=== PATIENT | female | born 1995 | race Hispanic/Latino ===

== ENCOUNTER 2017-12-26 11:41 | Emergency (ER) | payer SELFPAY ==
[2017-12-26 13:14] LABS: BILIRUBIN,URINE Small (NEGATIVE); COLOR,URINE Orange (YELLOW); GLUCOSE, URINE (UA) Negative (NEGATIVE); HCG,QUAL RESULT NEGATIVE (NEGATIVE); KETONES,URINE Negative (NEGATIVE); LEUKOCYTE ESTERASE ,URINE Large (NEGATIVE); NITRATE,URINE Positive (NEGATIVE); OCCULT BLOOD,URINE Moderate (NEGATIVE); PROTEIN,URINE Trace (NEGATIVE)
[2017-12-26 13:16] LABS: APPEARANCE,URINE SLIGHTLY CLOUDY (CLEAR)
[2017-12-26 13:34] LABS: SQUAMOUS EPITHELIAL CELL,UR Moderate /LPF (0-2)
[2017-12-26 13:35] LABS: BACTERIA,URINE Moderate /HPF (None Seen)
[2017-12-26 13:36] LABS: YEAST,URINE BUDDING Few /HPF (None Seen)
[2017-12-26] MEDS ORDERED: LIDOCAINE HCL-MPF 1% 2ML VIAL ONE (13:37)
[2017-12-26] MEDS ORDERED: CEFTRIAXONE SODIUM 1 GM ONE (13:37)
== END 2017-12-26 14:25 | disposition home or self-care (01) ==
LOC: EDH 11:41
DX: N39.0 Urinary tract infection, site not specified (principal); Z72.0 Tobacco use
CPT/HCPCS: 81001; 81025; 96372; 99284; J0696; J3490

== ENCOUNTER 2025-07-23 08:35 | Emergency (ER) | payer SELFPAY ==
[~2025-07-23] VITALS: Ht 162.6 cm; Wt 74.4 kg
[2025-07-23 10:04] LABS: RAPID GROUP A STREP negative (NEGATIVE)
[2025-07-23 10:12] LABS: COVID19 (SARS ANTIGEN RAPID) PRESUMPTIVE NEGATIVE (NEGATIVE)
[2025-07-23 10:13] LABS: INFLUENZA TYPE A Negative For Type A (NEGATIVE); INFLUENZA TYPE B Negative For Type B (NEGATIVE)
[2025-07-23] MEDS ORDERED: AZIT250T9 PO (10:26)
--- NOTE | 2025-07-23 10:26 | ERN ---
ED Note History of Present Illness Stated Complaint: SORE THROAT Chief Complaint: Sore Throat Time Seen by MD: 08:40 Dictation: 29-year-old female with a sore throat past few days cough cold congestion and pain with eating. Allergies: Coded Allergies: No Known Allergies (Unverified Allergy, Unknown, 07/23/25) Past Medical History Past Medical History: No Pertinent History Surgical History: None LMP: Jun 23, 2025 : 3 Para: 2 Aborts: 1 Review of System Dictation Constitutional: Negative for fever,chills, and weight loss Eyes: Negative for injury, pain,redness, and discharge ENT: Per HPI Cardiovascular: Negative for chest pain, palpitations, and edema Respiratory: Negative for shortness of breath, cough, and wheezing, Abdomen/GI: Negative for abdominal pain, nausea, vomiting, diarrhea, and constipation Back: Negative for injury and pain : Negative for injury, bleeding and discharge MS/Extremity: Negative for injury and deformity Initial Vital Sign VS Vital Signs Date Time Temp Pulse Resp B/P (MAP) Pulse Ox O2 Delivery O2 Flow Rate FiO2 07/23/25 08:38 100.4 98 18 136/89 100 Room Air 0 Physical Exam Dictation General: awake, alert, NAD Head/Face: Normocephalic, atraumatic Eyes: PERRL, EOMI, vision at baseline ENT: oral cavity clear, TMs clear, posterior exudates Neck: Trachea midline, supple, no nuchal rigidity Cardiovascular: RRR, normal S1/S2, No MRGs, no JVD Respiratory: CTAB, no respiratory distress, No rales or wheezes Abdomen: Soft, non-tender, non-distended, normal bowel sounds, no guarding or rebound. Skin: Warm, dry, normal turgor, no rash MS/Extremity: Pulses equal, no cyanosis, neurovascular intact, FROM Neuro: COAx4, GCS 15, strength 5/5, CN 2-12 intact, normal cerebellar exam, normal gait, Results (Laboratory/Radiology) Laboratory/Radiology Laboratory Tests Test 07/23/25 08:55 Influenza Type A Antigen Negative For Type A Influenza Type B Antigen Negative For Type B SARS-CoV-2 Antigen (Rapid) PRESUMPTIVE NEGATIVE Group A Streptococcus Rapid negative (NEGATIVE) Labs Reviewed?: Yes ED Course ED Course Orders Procedure Category Date Status Time Covid19 (Sars Antigen LAB 07/23/25 Complete Rapid) 08:44 Influenza Type A & B, LAB 07/23/25 Complete Rapid 08:44 Rapid (Group A Strep) LAB 07/23/25 Complete 08:44 Ceftriaxone 1g Vial PHA 07/23/25 Complete (Rocephine 1g Inj) 09:00 Acetaminophen 325 Tab PHA 07/23/25 Complete (Tylenol 325mg Tab 09:30 Dexamethasone 10mg/Ml PHA 07/23/25 Complete 1ml Vial (Dexameth 09:00 Current Medications Medications (Trade) Dose Ordered Sig/Clayton Route PRN Reason Start Time Stop Time Status Last Admin Dose Admin Acetaminophen (TYLenol 325MG TAB) 650 mg ONCE ONCE PO 07/23/25 09:30 07/23/25 09:31 DC 07/23/25 09:59 Ceftriaxone Sodium (ROCEphine 1G INJ) 1 gm ONCE ONCE IM 07/23/25 09:00 07/23/25 09:27 DC 07/23/25 09:58 Dexamethasone Sodium Phosphate (dexaMETHasone 10MG/ML 1ML VIAL) 10 mg ONCE ONCE IV 07/23/25 09:00 07/23/25 09:27 DC 07/23/25 09:58 Vital Signs Date Time Temp Pulse Resp B/P (MAP) Pulse Ox O2 Delivery O2 Flow Rate FiO2 07/23/25 08:38 100.4 98 18 136/89 100 Room Air 0 Medical Decision Making MDM MDM: Differential diagnosis: Rationale: Tests considered and ordered secondary to shared decision making include: Previous outside records reviewed: Old ER visits. Risk of complication and/or morbidity or mortality of patient management: None Medications-Per medication reconciliation Need for hospitalization: Patient does not meet criteria for hospitalization. Need for emergency major/minor surgery: No There are no social concerns with this patient. Prescription drug management Prescriptions will include symptomatic care Patient's prior external medical records from other ER visits were reviewed by me as indicated. Prior testing and results from previous visits were reviewed. Prior tests were taken into account with medical decision making and resource utilization, independent historian/historians were used to obtain complete medical history. I independently interpreted the test that were performed, results were reviewed by me and considered findings on radiology if ordered. Medical management and examination interpretation discussions were had by me with other qualified healthcare professionals as indicated for the patient's care. 29-year-old female with pharyngitis stable exam prescriptions given DX & DISP Disposition: Discharge Departure Impression: Primary Impression: Acute pharyngitis Condition: Stable Scripts Azithromycin (Azithromycin) 250 Mg Tablet 250 MG PO AD for cough for 5 Days, #6 TAB Prov: LIZBETH BISHOP MD 07/23/25 Referrals: SELF,REFERRAL (PCP) LIZBETH BISHOP MD Jul 23, 2025 10:26
[2025-07-23 10:42] VITALS: BP 124/78; PULSE 78; RESP 18; TEMP 98.4; O2SAT 98
--- NOTE | 2025-07-24 09:24 | NUR ---
ACCOUNT ACCESSED FOR QUESTION/CLARIFICATION FROM [facility]. PER CHIDI BHAKTA FOR PT TO TAKE Z PACK GENERALLY PRESCRIBED 2 TABS FOR 500MG DAY ONE AND 250MG 1 TAB DAILY UNTIL COMPLETE (4 TABS).
== END 2025-07-23 10:49 | disposition home or self-care (01) ==
LOC: EDH 08:35
DX: J02.9 Acute pharyngitis, unspecified (principal); Z20.822 Contact with and (suspected) exposure to COVID-19
CPT/HCPCS: 99284; 96374; 87426; 87880; 87804 ×2; 96372; J1100; J0696

== ENCOUNTER 2025-07-25 17:41 | Emergency (ER) | payer SELFPAY ==
[~2025-07-25] VITALS: Ht 162.6 cm; Wt 74.4 kg
[~2025-07-25 17:41] MED LIST: AZIT250T9 PO
--- NOTE | 2025-07-25 17:47 | ERN ---
ED Note History of Present Illness Stated Complaint: SORE THROAT Chief Complaint: Sore Throat Time Seen by MD: 17:42 Time Seen by Midlevel: 17:43 Dictation: Ms. Dobbins is a 29 old female with no reported chronic health issues who presented to the emergency department this evening for evaluation of throat pain. She reports throat pain, pain with swallowing/decreased p.o. intake, bilateral ear pain, and lightheadedness. She reports similar symptoms earlier this week. She was seen in this ER on 07/23. At that time COVID and strep were negative. She received doses IM Rocephin and Decadron. She was diagnosed with acute pharyngitis and discharged to home with prescription for azithromycin. Today she states throat pain is persistent and she has a headache. She states she feels like she might be getting dehydrated. She denies angioedema, difficulty breathing, drooling or muffled voice. She Denies fever, chills, shortness of breath, cough, chest pain, palpitations, edema, abdominal pain, [place], vomiting, hematemesis, constipation, diarrhea, melena, hematochezia, dysuria, dizziness, or focal weakness/paresthesia Allergies: Coded Allergies: No Known Allergies (Unverified Allergy, Unknown, 07/23/25) Home Meds Active Scripts Ketorolac Tromethamine (Toradol) 10 Mg Tab, 1 TAB PO Q6HPRN PRN for pain, #10 TAB 0 Refills Prov:RAMESH PEÑA NP 07/25/25 Potassium Chloride (Potassium Chloride) 20 Meq Tab.er.prt, 20 MEQ PO DAILYBKFST for 5 Days, #5 TAB 0 Refills Prov:RAMESH PEÑA NP 07/25/25 Ondansetron (Ondansetron Odt) 8 Mg Tab.rapdis, 1 TAB PO Q6H for nausea/vomiting for 3 Days, #12 TAB 0 Refills Prov:RAMESH PEÑA NP 07/25/25 Azithromycin (Azithromycin) 250 Mg Tablet, 250 MG PO AD for cough for 5 Days, #6 TAB Prov:LIZBETH BISHOP MD 07/23/25 Past Medical History Past Medical History: No Pertinent History Surgical History: None PSYCH History: no pertinent psych hx Social History: Negative, Lives with family History: Not Applicable : 3 Para: 2 Aborts: 1 RN Note Reviewed/Agreed w/PFSH: Yes Review of System Dictation REVIEW OF SYSTEMS: CONSTITUTIONAL: Patient denies fevers, chills, sweats and weight changes. R eports fatigue and general weakness EYES: Patient denies any visual symptoms. EARS, NOSE, AND THROAT: No difficulties with hearing. No symptoms of rhinitis. Reports bilateral ear pain. Reports sore throat. She was seen for sore throat this ER on 07/23. She states that strep was negative. She was diagnosed with a acute pharyngitis and prescribed a course of azithromycin. She reports pain with swallowing leading to poor p.o. intake. CARDIOVASCULAR: Patient denies chest pains, palpitations, orthopnea and paroxysmal nocturnal dyspnea. RESPIRATORY: No dyspnea on exertion, no wheezing or cough. GI: No nausea, vomiting, diarrhea, constipation, abdominal pain, hematochezia or melena. : No urinary hesitancy or dribbling. No nocturia or urinary frequency. No abnormal urethral discharge. MUSCULOSKELETAL: No myalgias or arthralgias. NEUROLOGIC: No chronic headaches, no seizures. Patient denies numbness, tingling or weakness. Reports dull headache and lightheadedness. PSYCHIATRIC: Patient denies problems with mood disturbance. No problems with anxiety. ENDOCRINE: No excessive urination or excessive thirst. DERMATOLOGIC: Patient denies any rashes or skin changes. Initial Vital Sign VS Vital Signs Date Time Temp Pulse Resp B/P (MAP) Pulse Ox O2 Delivery O2 Flow Rate FiO2 07/25/25 17:42 97.9 105 16 118/87 97 0 07/25/25 17:46 Room Air* 21 Physical Exam Dictation Vital signs: Reviewed. Afebrile Constitutional: Uncomfortable Head/Face: Normocephalic, atraumatic. No angioedema Eyes: Periorbital areas with no swelling, redness, or edema. Lids and lashes are normal. Conjunctival injection is absent. Sclera anicteric. Pupils equal, round, reactive to light. ENT: Pinnas intact and no signs of trauma or erythema. Ear canals clear and no discharge. TMs no erythema. No nasal discharge or bleeding noted. There is marked tonsillar enlargement with exudate but airway is patent, voice is clear and there is no trismus, drooling, or uvular deviation. Mucous membranes are dry. Neck: Trachea midline, no masses palpated, No swelling. Supple, full range of motion. Chest/Axilla: No tenderness, no crepitus, no paradoxical movement, no retractions. Cardiovascular: Regular rate, regular rhythm, no murmur, no gallops. Symmetric pulses. No peripheral edema. Tachycardic; heart rate 105. Normotensive. Respiratory: Respirations even and unlabored. Lung sounds clear; no wheezes, rales or rhonchi. Room air SpO2 99% Gastrointestinal: Inspection is normal. No distention is appreciated. Bowel sounds are normal. No mass or organomegaly . There is no tenderness. No rebound. No rigidity. No voluntary or involuntary guarding. No Miguel's sign. Neurological: Normal speech, gross motor function intact, gross sensory function intact. No focal weakness/Paresthesia. Musculoskeletal/Extremities: All extremities have full range of motion, no pain or tenderness on palpation. Symmetric pulses. Integumentary: Intact. Skin is normal color, warm and dry. Cap refill less than 2 seconds. Results (Laboratory/Radiology) Laboratory/Radiology Laboratory Tests Test 07/25/25 18:00 White Blood Count 7.9 K/uL (4.8-10.8) Red Blood Count 4.28 MIL/uL (4.00-5.50) Hemoglobin 14.0 g/dL (12.0-16.0) Hematocrit 40.3 % (36-48) Mean Corpuscular Volume 94.2 fL (79-99) Mean Corpuscular Hemoglobin 32.7 pg (27.0-33.0) Mean Corpuscular Hemoglobin Concent 34.7 g/dL (32.0-36.0) Red Cell Distribution Width 12.5 % (11.0-15.5) Platelet Count 355 K/uL (130-400) Mean Platelet Volume 8.9 fL (7.5-10.5) Immature Granulocyte % (Auto) 0.4 % (0-1) Neutrophils (%) (Auto) 63.3 % (40.0-77.0) Lymphocytes (%) (Auto) 25.3 % (21.0-51.0) Monocytes (%) (Auto) 10.1 % (3.0-13.0) Eosinophils (%) (Auto) 0.4 % (0.0-8.0) Basophils (%) (Auto) 0.5 % (0.0-5.0) Neutrophils # (Auto) 5.0 K/uL (1.8-7.7) Lymphocytes # (Auto) 2.0 K/uL (1.0-4.8) Monocytes # (Auto) 0.8 K/uL (0.1-1.0) Eosinophils # (Auto) 0.03 K/uL (0.00-0.70) Basophils # (Auto) 0.04 K/uL (0.00-0.20) Absolute Immature Granulocyte (auto 0.03 K/uL (0-1) Nucleated Red Blood Cells 0.0 % (0.0-0.19) Sodium Level 137 mmol/L (136-145) Potassium Level 3.0 mmol/L (3.5-5.1) *L Chloride Level 98 mmol/L (101-111) L Carbon Dioxide Level 27 mmol/L (21-32) Blood Urea Nitrogen 14 mg/dL (7-18) Creatinine 0.7 mg/dL (0.5-1.0) Glomerular Filtration Rate Calc 121 mL/min (>90) Random Glucose 110 mg/dL (70-105) H Lactic Acid Level 1.2 mmol/L (0.8-2.5) Total Calcium 8.9 mg/dL (8.5-10.1) Monoscreen NEGATIVE (NEGATIVE) Labs Reviewed?: Yes ED Course ED Course Orders Procedure Category Date Status Time Ceftriaxone 1g Vial PHA 07/25/25 In Process (Rocephine 1g Inj) 18:00 0.9%Nacl 1000ml (Ns PHA 07/25/25 In Process 1000ml) 18:00 Ketorolac PHA 07/25/25 In Process Tromethamine 15mg/Ml 18:00 Cbc With Differential LAB 07/25/25 Complete 17:49 Basic Metabolic Panel LAB 07/25/25 Complete 17:49 Lactic Acid LAB 07/25/25 Complete 17:49 Rapid (Group A Strep) LAB 07/25/25 In Process 18:16 Monotest LAB 07/25/25 Complete 18:16 Potassium Chloride PHA 07/25/25 In Process 20meq/100ml ([place] 18:30 Current Medications Medications (Trade) Dose Ordered Sig/Clayton Route PRN Reason Start Time Stop Time Status Last Admin Dose Admin Ceftriaxone Sodium (ROCEphine 1G INJ) 1 gm ONCE IM 07/25/25 18:00 07/25/25 22:00 07/25/25 18:19 Ketorolac Tromethamine (toRADol) 15 mg ONCE IV 07/25/25 18:00 07/25/25 22:00 07/25/25 18:19 Potassium Chloride 100 ml @ 50 mls/hr ONCE IV 07/25/25 18:30 07/25/25 23:30 07/25/25 18:42 Sodium Chloride 1,000 ml @ 0 mls/hr ONCE IV 07/25/25 18:00 07/26/25 17:59 07/25/25 18:19 Vital Signs Date Time Temp Pulse Resp B/P (MAP) Pulse Ox O2 Delivery O2 Flow Rate FiO2 07/25/25 19:20 97.9 96 16 115/76 100 Room Air* 0 21 07/25/25 17:46 97.9 105 16 118/87 97 Room Air* 0 21 07/25/25 17:42 97.9 105 16 118/87 97 0 Uneventful ED course. Patient arrived to the hospital with tachycardia; HR 105. Normotensive and afebrile with room air SpO2 97-100%. She has large tonsils with exudate. Voice is clear and goal. She is able to drink fluids without difficulty. Laboratory findings as noted below. There is no elevation of WBCs. No neutrophilia or lymphocytosis my: No left shift. K3.0 chloride 98, glucose 110, and GFR 121. While in the emergency department she received dose Toradol, KCl, and NS 1000 mL IV as bolus. She is able to ambulate with steady gait. She states she is feeling better. No evidence of bacterial infection. We will treat supportively and replace potassium. She can follow up with your PCP and/or ENT if symptoms persist. Given discharge instructions to include pharyngitis care at home, potassium replacement instructions, and return to ER immediately instructions. Medical Decision Making MDM MDM: Differential diagnosis: Acute pharyngitis, peritonsillar abscess, epiglottitis, strep, acute dehydration Rationale: Tests considered and ordered secondary to shared decision making include: Lab Previous outside records reviewed: Old ER visits. Risk of complication and/or morbidity or mortality of patient management: None Medications-Per medication reconciliation Need for hospitalization: Patient does not meet criteria for hospitalization. Need for emergency major/minor surgery: No There are no social concerns with this patient. Prescription drug management: Toradol, Zofran, potassium chloride Prescriptions will include symptomatic care Patient's prior external medical records from other ER visits were reviewed by me as indicated. Prior testing and results from previous visits were reviewed. Prior tests were taken into account with medical decision making and resource utilization, independent historian/historians were used to obtain complete medical history. I independently interpreted the test that were performed, results were reviewed by me and considered findings on radiology if ordered. Medical management and examination interpretation discussions were had by me with other qualified healthcare professionals as indicated for the patient's care. DX & DISP Disposition: Discharge Departure Impression: Primary Impression: Acute pharyngitis Additional Impressions: Hypokalemia, Mild dehydration Condition: Stable Scripts Ketorolac Tromethamine (Toradol) 10 Mg Tab 1 TAB PO Q6HPRN PRN for pain, #10 TAB 0 Refills Prov: RAMESH PEÑA TRAINING DESIGNER 07/25/25 Potassium Chloride (Potassium Chloride) 20 Meq Tab.er.prt 20 MEQ PO DAILYBKFST for 5 Days, #5 TAB 0 Refills Prov: RAMESH PEÑA TRAINING DESIGNER 1025 Ondansetron (Ondansetron Odt) 8 Mg Tab.rapdis 1 TAB PO Q6H for nausea/vomiting for 3 Days, #12 TAB 0 Refills Prov: RAMESH PEÑA TRAINING DESIGNER 07/25/25 Additional Instructions: Were evaluated in the emergency department for sore throat. Your exam showed enlarged tonsils with exudate, but your labs were reassuring. Your white blood cell count was normal and there were no signs of a serious bacterial infection you received potassium replacement 20 mEq per your mildly low potassium (3.0) your kidney function was normal. You did not have any airway compromise or other dangerous findings. Rest and drink plenty of fluids (even Popsicles) use acetaminophen or ibuprofen for pain or fever as needed. May take Toradol every 6 hours as needed for worse pain. Warm saltwater gargles or warm teas can help soothe her throat. Avoid smoking, vaping, or irritants. Continue your antibiotics as previously prescribed. Avoid kissing her sharing utensils until symptoms improve. Take your prescribed oral potassium supplement as directed 20 mEq daily for five days. Take with food and a full glass of water to reduce stomach upset. Do not crush or chew the tablets. Eat potassium rich foods if tolerated (bananas, oranges, tomatoes, potatoes, leafy greens, beans). Follow up with your primary care provider to recheck your potassium level in 3-5 days. Return to the emergency department immediately if you develop: Difficulty breathing, drooling, or muffled voice. Worsening throat pain or swelling. High fevers, severe lightheadedness, or inability to swallow liquids. Chest pain, palpitations, muscle weakness, or new neurological symptoms. Referrals: SELF,REFERRAL (PCP) Time of Disposition: 19:35 RAMESH PEÑA NP Jul 25, 2025 17:47
[2025-07-25 18:03] LABS: IMMATURE GRANULOCYTE ABSOLUTE 0.03 K/uL (0-1); NUCLEATED RED BLOOD CELLS 0.0 % (0.0-0.19); PLATELET COUNT (AUTO) 355 K/uL (130-400); RED BLOOD CELL COUNT(AUTO) 4.28 MIL/uL (4.00-5.50); RED CELL DISTRIBUTION WIDTH 12.5 % (11.0-15.5); WHITE BLOOD COUNT (AUTO) 7.9 K/uL (4.8-10.8)
[2025-07-25 18:11] LABS: CREATININE 0.7 mg/dL (0.5-1.0); GLOMERULAR FILTR. RATE CALC 121.0 mL/min (>90); GLUCOSE,RANDOM 110.0 mg/dL (70-105); SODIUM SERUM 137.0 mmol/L (136-145); UREA NITROGEN, BLOOD 14.0 mg/dL (7-18)
[2025-07-25] MEDS: 0.9%NACL 1000ML 1,000 ML IV SCH (18:19)
--- NOTE | 2025-07-25 19:20 | NUR ---
PT CARE ASSUMED AT THIS TIME
[2025-07-25] MEDS ORDERED: KETO10 PO (19:31)
[2025-07-25] MEDS ORDERED: POTA-202 PO (19:31)
[2025-07-25] MEDS ORDERED: ONDA-245 PO (19:31)
[2025-07-25 20:11] VITALS: BP 111/70; PULSE 94; RESP 15; TEMP 97.6; O2SAT 100
--- NOTE | 2025-07-25 20:14 | NUR ---
PT REQUEST FOR POTASSIUM TO BE STOPPED AT THIS TIME. PT EDUCATED ABOUT THE IMPORTANCE OF THE POTASSIUM REPLACEMENT. PT VERBALIZED UNDERSTANDING OF EDUCATION AT THIS TIME. ANA CHANDLER NOTIFIED. PER ANA CHANDLER PT IS CLEARED FOR DISCHARGE.
== END 2025-07-25 20:22 | disposition home or self-care (01) ==
LOC: EDH 17:41
DX: J02.9 Acute pharyngitis, unspecified (principal); E87.6 Hypokalemia; E86.0 Dehydration
CPT/HCPCS: 99284; 96365; 96375; 80048; 85025; 87880; 86308; 83605; 36415; 96372; J1885; J7030; J0696; J3480